=== PATIENT | male | born 1985 | race Caucasian/White ===

== ENCOUNTER 2020-10-27 07:41 | Emergency (ER) | payer OTHER ==
[2020-10-27] MEDS ORDERED: Ibuprofen 600 MG Tab PO ONE (08:18)
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
[2020-10-27] MEDS ORDERED: Diphtheria,Pertussis(Acell),Tetanus Vaccine 0.5 ML Syringe IM ONE (08:26)
[2020-10-27] MEDS ORDERED: Diphtheria,Pertussis(Acell),Tetanus Vaccine 0.5 ML Syringe ONE (08:30)
== END 2020-10-27 08:47 | disposition home or self-care (01) ==
LOC: MW.ED 07:41
DX: T20.00XA Burn of unspecified degree of head, face, and neck, unspecified site, initial encounter (principal); F42.9 Obsessive-compulsive disorder, unspecified; Z88.2 Allergy status to sulfonamides; Z79.899 Other long term (current) drug therapy
CPT/HCPCS: 90471; 99283; A9270; 99282